=== PATIENT | male | born 2000 | race Caucasian/White ===

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

== ENCOUNTER 2019-10-03 18:29 | Emergency (ER) | payer SELFPAY ==
[~2019-10-03] VITALS: Ht 182 cm; Wt 91.0 kg
--- NOTE | 2019-10-03 19:07 | ED General ---
General Chief Complaint: General Problems/Pain Stated Complaint: WARMTH ON BACK OF NECK/IRON SMELL Nursing Triage Note: PT STATES THINKS HE HAS A BRAIN BLEED, HAS SENSATION OF WARM FLUID DOWN BACK OF NECK AND STATES SMELLS IRON TYPE SMELL. PT HAS HAD RECENTLY USED METH 4 DAYS AGO. 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 He also states that he has a iron type smell. Patient looked up on the Internet and saw that this could be a possible symptom of the brain bleed. Patient reports this started about an hour and a half ago. Patient denies any headache, nausea, vomiting, vision changes or any other focal deficit. He does report he is working on his truck and had some pressure on the back of his upper neck from a topper. Patient does admit to using meth 4 days ago. He denies any other systemic complaints. Allergies and Home Medications Allergies Coded Allergies: No Known Drug Allergies (Unverified , 11/23/09) Home Medications No Active Prescriptions or Reported Meds Patient Home Medication List Home Medication List Reviewed: Yes Review of Systems Review of Systems Constitutional: No chills, No fever EENTM: see HPI Respiratory: no symptoms reported Gastrointestinal: no symptoms reported Genitourinary: no symptoms reported Musculoskeletal: no symptoms reported Skin: no symptoms reported Psychiatric/Neurological: See HPI Past Yblgnpy-Bsojim-Lwpjvm Hx Past Med/Social Hx: Reviewed Nursing Past Med/Soc Hx Patient Social History Alcohol Use: Denies Use Recreational Drug Use: Yes (HX POT, METH 4 DAYS AGO) Smoking Status: Never a Smoker 2nd Hand Smoke Exposure: Yes Recent Foreign Travel: No Contact w/Someone Who Travel: No Recent Infectious Disease Expo: No Recent Hopitalizations: No Ebola Symptoms: Denies Symptoms Listed Physical Abuse: No Sexual Abuse: No Immunizations Up To Date Tetanus Booster (TDap): Less than 5yrs PED Vaccines UTD: Yes Seasonal Allergies Seasonal Allergies: No Past Medical History Surgeries: Yes (BONE CYST) Adenoidectomy, Tonsillectomy Respiratory: No Cardiac: No Neurological: No Reproductive Disorders: No Sexually Transmitted Disease: No HIV/AIDS: No Genitourinary: No Gastrointestinal: No Musculoskeletal: No Endocrine: No HEENT: No Cancer: No Psychosocial: Yes ADD/ADHD, Sleep Difficulties, Depression Integumentary: No Blood Disorders: No Family Medical History No Pertinent Family Hx Physical Exam Vital Signs Vital Signs - First Documented 10/03/19 18:42 Temp 36.8 Pulse 124 Resp 18 B/P (MAP) 140/81 Capillary Refill : Height, Weight, BMI Height: 5'11" Weight: 237lbs. oz. [id number]; 27.00 BMI Method:Stated General Appearance: No Apparent Distress, WD/WN Eyes: Bilateral Eye Normal Inspection, Bilateral Eye PERRL, Bilateral Eye EOMI HEENT: Normal ENT Inspection, Pharynx Normal Neck: Full Range of Motion, Normal Inspection, Non Tender, Supple Respiratory: Chest Non Tender, Lungs Clear, Normal Breath Sounds Cardiovascular: Regular Rate, Rhythm, No Edema, Normal Peripheral Pulses Gastrointestinal: Non Tender, Soft Back: Normal Inspection Extremity: Normal Capillary Refill, Normal Inspection, Normal Range of Motion Neurologic/Psychiatric: Alert, Oriented x3, No Motor/Sensory Deficits, Normal Mood/Affect, 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 Discussed symptoms with patient. Patient was offered a CT of his head. However at this time he felt with no other symptoms and his other symptoms very minimal that he would prefer to forego the CT at this time. We discussed other symptoms or worsening of symptoms. He feels that if symptoms worsen or any starts to develop other symptoms he will return to the ER for a CT at that time. Patient is stable and will be discharged home Departure Impression Primary Impression: Encounter for medical screening examination Disposition: HOME, SELF-CARE Condition: Stable Departure-Patient Inst. Referrals: [facility] (PCP/Family) Primary Care Physician Add. Discharge Instructions: Emergency department focuses on treating and ruling out life-threatening diseases. Whenever possible, a diagnosis is given. However, most patients are given an impression based on their history, physical exam, and workup during your brief time in the ER. Information about probable diagnosis and other educational material has been provided. Please take the time to read and understand this information. It is very important that you follow up with a physician as discussed during the visit today. Failure to adhere to your follow-up instructions may lead to severe disability, injury, or so please make sure to keep your appointments or obtain one as requested. Please keep in mind the emergency department is not designed to your primary care or "family doctor" and nonurgent issues are best evaluated by an outpatient physician All discharge instructions reviewed with patient and/or family. Voiced understanding. Scripts No Active Prescriptions or Reported Meds ELENA MARTE DO Oct 03, 2019 19:07
== END 2019-10-03 19:10 | disposition home or self-care (01) ==
LOC: EDUNIT# 18:29 → ER 18:30
DX: Z03.89 Encounter for observation for other suspected diseases and conditions ruled out (principal); Z77.22 Contact with and (suspected) exposure to environmental tobacco smoke (acute) (chronic)
CPT/HCPCS: 99281

== ENCOUNTER 2020-01-22 19:39 | Emergency (ER) | payer SELFPAY ==
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
[2020-01-23] MEDS ORDERED: SULF1TAB35 PO (01:09)
== END 2020-01-22 19:46 | disposition left against medical advice (07) ==
LOC: EDUNIT# 19:39 → ER 19:40
DX: S21.119A Laceration without foreign body of unspecified front wall of thorax without penetration into thoracic cavity, initial encounter (principal); X58.XXXA Exposure to other specified factors, initial encounter

== ENCOUNTER 2020-01-22 23:44 | Emergency (ER) | payer SELFPAY ==
[~2020-01-22] VITALS: Ht 182.9 cm; Wt 90.7 kg
[2020-01-23] MEDS ORDERED: NS IV 1000 ML 1,000 ML IV SCH (00:16)
[2020-01-23 00:25] LABS: BASOPHILS % (AUTO) 0 % (0-10); EOSINOPHILS # (AUTO) 0.1 10^3/uL (0.0-0.3); EOSINOPHILS % (AUTO) 1 % (0-10); HEMATOCRIT 45 % (40-54); HEMOGLOBIN 15.6 G/DL (13.3-17.7); LYMPHOCYTES # (AUTO) 4.8 X 10^3 (1.0-4.0); LYMPHOCYTES % (AUTO) 35 % (12-44); MEAN CORPUSCULAR HEMOGLOBIN 28 PG (25-34); MEAN CORPUSCULAR HGB CONC 35 G/DL (32-36); MEAN CORPUSCULAR VOLUME 82 FL (80-99); MEAN PLATELET VOLUME 9.8 FL (7.4-10.4); MONOCYTES # (AUTO) 1.7 X 10^3 (0.0-1.0); MONOCYTES % (AUTO) 13 % (0-12); NEUTROPHILS # (AUTO) 6.9 X 10^3 (1.8-7.8); NEUTROPHILS % (AUTO) 51 % (42-75); PLATELET COUNT 207 10^3/uL (130-400); RED CELL DISTRIBUTION WIDTH 12.8 % (10.0-14.5); WHITE BLOOD COUNT 13.4 10^3/uL (4.3-11.0)
[2020-01-23] MEDS ORDERED: TRIM/SULFAMETH 160/800 (SEPTRA DS) TAB PO ONE (01:00)
[2020-01-23] MEDS ORDERED: TETANUS,DIPTH,PERTUSS P/F (BOOSTRIX) 0.5 ML VIAL IM ONE (01:00)
[2020-01-23 01:09] LABS: ALBUMIN 4.9 GM/DL (3.2-4.5); CHLORIDE 105 MMOL/L (98-107); POTASSIUM 3.1 MMOL/L (3.6-5.0); SODIUM 142 MMOL/L (135-145)
[2020-01-23] MEDS ORDERED: SULF1TAB35 PO (01:09)
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
[2020-01-23 01:10] LABS: CALCIUM 9.8 MG/DL (8.5-10.1)
[2020-01-23 01:11] LABS: GLUCOSE 108 MG/DL (70-105)
[2020-01-23 01:12] LABS: TOTAL PROTEIN 7.7 GM/DL (6.4-8.2)
[2020-01-23 01:13] LABS: BILIRUBIN,TOTAL 0.5 MG/DL (0.1-1.0); CARBON DIOXIDE 25 MMOL/L (21-32)
[2020-01-23 01:15] LABS: ALKALINE PHOSPHATASE 96 U/L (40-136); CREATININE SERUM 1.08 MG/DL (0.60-1.30); GFR ESTIMATED > 60
[2020-01-23] MEDS ORDERED: IOHEXOL 350 MG/ML 100 ML (OMNIPAQUE 350) VIAL IV ONE (01:15)
[2020-01-23] MEDS ORDERED: NS 100 ML (IVPB) BAG IV ONE (01:15)
[2020-01-23] MEDS ORDERED: HOLD METFORMIN - RECEIVED CONTRAST 20 ML VIAL IV SCH (01:15)
[2020-01-23 01:16] LABS: BUN/CREATININE RATIO 12
[2020-01-23 01:18] LABS: ALANINE AMINOTRANSFERASE 13 U/L (0-55)
[2020-01-23 01:27] VITALS: BP 140/81
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
== END 2020-01-23 01:27 | disposition home or self-care (01) ==
LOC: EDUNIT# 23:44 → ER 23:46
DX: S21.131A Puncture wound without foreign body of right front wall of thorax without penetration into thoracic cavity, initial encounter (principal); S00.81XA Abrasion of other part of head, initial encounter; S20.419A Abrasion of unspecified back wall of thorax, initial encounter; R40.2142 Coma scale, eyes open, spontaneous, at arrival to emergency department; R40.2252 Coma scale, best verbal response, oriented, at arrival to emergency department; R40.2362 Coma scale, best motor response, obeys commands, at arrival to emergency department; Z23 Encounter for immunization; Z77.22 Contact with and (suspected) exposure to environmental tobacco smoke (acute) (chronic); W26.8XXA Contact with other sharp object(s), not elsewhere classified, initial encounter; W01.0XXA Fall on same level from slipping, tripping and stumbling without subsequent striking against object, initial encounter
CPT/HCPCS: 71045; 71260; 74177; 80053; 85025; 99284; G0480; 36415; 80320; 90715

== ENCOUNTER 2021-06-11 09:17 | Emergency (ER) | payer SELFPAY ==
[~2021-06-11] VITALS: Ht 182 cm; Wt 90.0 kg
--- NOTE | 2021-06-11 09:40 | ED EENT ---
History of Present Illness General Chief Complaint: Ear Problems Stated Complaint: R EAR PAIN,N/V Nursing Triage Note: AMB TO ROOM WITH C/O R EAR POPPING AND CRANKLING WHEN YAWING. Source: patient Exam Limitations: no limitations History of Present Illness Date Seen by Provider: Jun 11, 2021 Time Seen by Provider: 09:26 Initial Comments Patient is a 20-year-old male who presents to the emergency room with a chief complaint of right ear pain for the last 2 days. Patient has been using some drops he got from his mother that used to be his sisters. He has been putting those eardrops and without any relief of symptoms. Last time he used it was yesterday. He denies fevers, chills, cough or congestion. He is not Covid vaccinated. Denies any sick contacts positive with Covid. He states he also ate really fast this morning, became nauseous and made himself vomit prior to arrival. No abdominal pain. No problems with bowel or bladder. All other review of systems reviewed and negative except as stated Timing/Duration: gradual Location: ear (R) Prearrival Treatment: no prearrival treatment Associated Symptoms: other (Crackling and popping in his right ear) Allergies and Home Medications Allergies Coded Allergies: No Known Drug Allergies (Unverified , 11/23/09) Patient Home Medication List Home Medication List Reviewed: Yes Sulfamethoxazole/Trimethoprim (Bactrim Ds Tablet) 1 Each Tablet, 1 EACH PO BID Prescribed by: BLANCA LUCIA on 01/23/20 0109 Review of Systems Review of Systems Constitutional: see HPI Eyes: No Symptoms Reported Ears: Pain Nose: no symptoms reported Mouth: no symptoms reported Throat: no symptoms reported Respiratory: no symptoms reported Cardiovascular: no symptoms reported Gastrointestinal: nausea, vomiting Musculoskeletal: no symptoms reported Skin: no symptoms reported Neurological: No Symptoms Reported All Other Systems Reviewed Negative Unless Noted: Yes Past Wbtyokb-Zzgjbd-Ewzdcm Hx Patient Social History Tobacco Use?: No Use of E-Cig and/or Vaping dev: Yes E-Cig or Vaping type used: Synthetic Cannabinoids Alcohol Use?: No Immunizations Up To Date Tetanus Booster (TDap): Less than 5yrs PED Vaccines UTD: Yes Seasonal Allergies Seasonal Allergies: No Past Medical History Surgeries: Yes (BONE CYST) Adenoidectomy, Tonsillectomy Respiratory: No Cardiac: No Neurological: No Reproductive Disorders: No Sexually Transmitted Disease: No HIV/AIDS: No Genitourinary: No Gastrointestinal: No Musculoskeletal: No Endocrine: No HEENT: No Cancer: No Psychosocial: Yes ADD/ADHD, Sleep Difficulties, Depression Integumentary: No Blood Disorders: No Family Medical History No Pertinent Family Hx Physical Exam Vital Signs Vital Signs - First Documented 06/11/21 09:25 Temp 35.3 Pulse 75 Resp 18 Pulse Ox 98 O2 Delivery Room Air Height, Weight, BMI Height: 5'11" Weight: 237lbs. oz. 107.915567xe; 27.00 BMI Method:Stated General Appearance: WD/WN, no apparent distress Eyes: bilateral eye normal inspection, bilateral eye PERRL, bilateral eye EOMI Ears: right ear TM red (Erythema from about 11:00 to 3:00, crescent shaped on the TM, effusion behind the erythema is noted as there is some bulging), right ear TM bulging (Bulging at the superior aspect of the TM, no perforation is noted); left ear auricle normal, left ear canal normal, left ear TM normal Neck: non-tender, full range of motion, supple, normal inspection Cardiovascular: regular rate, rhythm Respiratory: lungs clear, normal breath sounds, no respiratory distress, no accessory muscle use Gastrointestinal: soft Neurologic/Psychiatric: alert, normal mood/affect, oriented x 3 Skin: normal color, warm/dry Procedures/Interventions Suture Size: 4-0 Progress/Results/Core Measures Results/Orders Vital Signs/I&O 06/11/21 09:25 Temp 35.3 Pulse 75 Resp 18 B/P (MAP) Pulse Ox 98 O2 Delivery Room Air Departure Impression Primary Impression: Otitis media Qualified Codes: H65.01 - Acute serous otitis media, right ear Disposition: HOME, SELF-CARE Condition: Stable Departure-Patient Inst. Decision time for Depature: 09:37 Referrals: [facility] [place],LOCAL PHYSICIAN (PCP) Primary Care Physician Patient Instructions: Ear Infection ED Add. Discharge Instructions: Drink plenty of fluids to stay well-hydrated. Take [id number] generic ibuprofen, Motrin or Advil3 tablets which is 600 mg every 6 hours with food for pain. You can also apply heating pad to the right ear for pain relief. Monitor your symptoms for the next 24 to 48 hours. 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 Return to the emergency room for any high fevers, persistent nausea vomiting, shortness of breath or other emergent concerns. Scripts Amoxicillin (Amoxicillin) 875 Mg Tablet 875 MG PO BID for 7 Days, #14 TAB Prov: JOANNA MINA MD 06/11/21 JOANNA MINA MD Jun 11, 2021 09:40
[2021-06-11] MEDS ORDERED: AMOX875T2 PO (09:41)
== END 2021-06-11 09:48 | disposition home or self-care (01) ==
LOC: EDUNIT# 09:17 → ER 09:20
DX: H66.91 Otitis media, unspecified, right ear (principal)
CPT/HCPCS: 99281